=== PATIENT | male | born 1940 | race Caucasian/White ===

== ENCOUNTER → 2024-10-15 | Outpatient (CLI) | payer MEDICARE ==
[~2024-10-15] MED LIST: ASPI81CH33 PO; CIDE250T PO; DONE10TA90; MEMA10TA; OMEG10002 PO; THERTAB52 PO
== END ==
LOC: M PLARAD 09:56
PROVIDERS: ATTEND Internal Medicine Hematology & Oncology
DX: C22.9 Malignant neoplasm of liver, not specified as primary or secondary (principal)
CPT/HCPCS: 78815; A9552

== ENCOUNTER → 2024-10-29 | Outpatient (CLI) | payer MEDICARE ==
[2024-10-29 10:52] LABS: BASO # 0.1 10^3/uL (0.0-0.2); BASO % 0.7 % (0.0-1.0); EOS # 0.1 10^3/uL (0.0-0.5); EOS % 0.7 % (0.0-3.0); HEMATOCRIT 46.6 % (42.0-52.0); HEMOGLOBIN 15.7 g/dl (13.5-17.5); LYMPH # 2.1 10^3/uL (1.5-5.0); LYMPH % 20.4 % (24.0-44.0); MEAN CORPUSCULAR HEMOGLOBIN 32.6 pg (27.0-33.0); MEAN CORPUSCULAR HGB CONC 33.7 g/dl (32.0-36.5); MEAN CORPUSCULAR VOLUME 96.9 fl (80.0-96.0); MONO % 9.7 % (2.0-8.0); NEUTROPHILS % 68.2 % (36.0-66.0); PLATELET COUNT, AUTOMATED 277 10^3/uL (150-450); RED BLOOD COUNT 4.81 10^6/uL (4.30-6.10); WHITE BLOOD COUNT 10.2 10^3/uL (4.0-10.0)
[2024-10-29 11:13] LABS: PROTHROMBIN TIME 13.5 SECONDS (12.5-14.5)
[2024-10-29 11:31] LABS: ALBUMIN 3.5 G/DL (3.2-5.2); ALKALINE PHOSPHATASE 69 U/L (40-129); ALT/SGPT 26 U/L (7.0-40); AST/SGOT 30 U/L (<34); BILIRUBIN,TOTAL 0.6 MG/DL (0.3-1.2); BLOOD UREA NITROGEN 16 MG/DL (9-23); CALCIUM LEVEL 9.7 MG/DL (8.3-10.6); CARBON DIOXIDE LEVEL 26 MMOL/L (20-31); CHLORIDE LEVEL 104 MMOL/L (98-107); CREATININE FOR GFR 0.67 MG/DL (0.70-1.30); GLOMERULAR FILTRATION RATE > 60.0 (>35); GLUCOSE, FASTING 176 MG/DL (74-106); POTASSIUM SERUM 4.1 MMOL/L (3.5-5.1); SODIUM LEVEL 139 MMOL/L (136-145); TOTAL PROTEIN 6.8 G/DL (5.7-8.2)
== END ==
LOC: M ONCR 09:38
PROVIDERS: ATTEND General Practice
DX: D37.6 Neoplasm of uncertain behavior of liver, gallbladder and bile ducts (principal); K76.9 Liver disease, unspecified; Z79.82 Long term (current) use of aspirin; Z79.899 Other long term (current) drug therapy
CPT/HCPCS: 36415; 80053; 85025; 85610; G0463

== ENCOUNTER → 2024-10-31 | Outpatient (POV) | payer MEDICARE ==
[~2024-10-31] VITALS: Ht 165.1 cm; Wt 75.9 kg
[2024-10-31 15:45] VITALS: BP 148/102; O2SAT 96
== END ==
LOC: M IRPOV 15:25
PROVIDERS: ATTEND Radiology Diagnostic Radiology
DX: K76.89 Other specified diseases of liver (principal); G30.9 Alzheimer's disease, unspecified; F02.80 Dementia in other diseases classified elsewhere, unspecified severity, without behavioral disturbance, psychotic disturbance, mood disturbance, and anxiety; C61 Malignant neoplasm of prostate; G47.33 Obstructive sleep apnea (adult) (pediatric); Z79.82 Long term (current) use of aspirin; Z79.899 Other long term (current) drug therapy

== ENCOUNTER 2024-11-19 08:29 | Observation (INO) | payer MEDICARE ==
[~2024-11-19] VITALS: Ht 165.1 cm; Wt 80.6 kg
[~2024-11-19 08:29] MED LIST changes: +CINN500C2 PO; -DONE10TA90; +DONE10TA90 PO; -MEMA10TA; +MEMA10TA PO; +ODOR100T3 PO; +ceFAZolin SOD 1 GM in DEXTROSE 5% (D5W) ADV/MINI-BAG 50 ML IV ONE
[2024-11-19] MEDS: ISOVUE-300 61% 100ML VIAL IV ONE (08:55)
[2024-11-19] MEDS: EMLA CREAM 5GM TUBE (LIDOCAINE/PRILOCAINE) TOP ONE (08:55)
[2024-11-19] MEDS: ceFAZolin SOD 2 GM IV ONCE IV ONE (09:00)
[2024-11-19] MEDS: metroNIDAZOLE 500 MG in IV 1 EA IV ONE (09:00)
[2024-11-19] MEDS: NS (Normal Saline) 0.9% 1,000 ML IV SCH ×2 (09:00→15:23)
[2024-11-19 09:02] LABS: HEMATOCRIT 47.4 % (42.0-52.0); HEMOGLOBIN 15.7 g/dl (13.5-17.5); MEAN CORPUSCULAR HEMOGLOBIN 31.9 pg (27.0-33.0); MEAN CORPUSCULAR HGB CONC 33.1 g/dl (32.0-36.5); MEAN CORPUSCULAR VOLUME 96.3 fl (80.0-96.0); PLATELET COUNT, AUTOMATED 266 10^3/uL (150-450); RED BLOOD COUNT 4.92 10^6/uL (4.30-6.10); WHITE BLOOD COUNT 10.8 10^3/uL (4.0-10.0)
[2024-11-19 09:19] LABS: INR 1.01; PROTHROMBIN TIME 13.6 SECONDS (12.5-14.5)
[2024-11-19 09:27] LABS: ALBUMIN 3.6 G/DL (3.2-5.2); ALKALINE PHOSPHATASE 71 U/L (40-129); ALT/SGPT 27 U/L (7.0-40); AST/SGOT 38 U/L (<34); BILIRUBIN,TOTAL 0.7 MG/DL (0.3-1.2); BLOOD UREA NITROGEN 11 MG/DL (9-23); CALCIUM LEVEL 9.3 MG/DL (8.3-10.6); CARBON DIOXIDE LEVEL 28 MMOL/L (20-31); CHLORIDE LEVEL 104 MMOL/L (98-107); CREATININE FOR GFR 0.67 MG/DL (0.70-1.30); GLOMERULAR FILTRATION RATE > 60.0 (>35); GLUCOSE, FASTING 117 MG/DL (74-106); POTASSIUM SERUM 4.4 MMOL/L (3.5-5.1); SODIUM LEVEL 142 MMOL/L (136-145); TOTAL PROTEIN 6.8 G/DL (5.7-8.2)
[2024-11-19] MEDS: MIDAZOLAM INJ 2MG/2ML VIAL IV PRN (09:57)
[2024-11-19] MEDS: fentaNYL 100 MCG/2 ML INJECTION IV PRN (09:57)
[2024-11-19] MEDS: NITROGLYCERIN 2% OINT 1 GM *U/D* PKT TOP ONE (10:00)
[2024-11-19] MEDS: NITROGLYCERIN IN D5W 25MG/250ML (100MCG/ML) XX ONE (10:11)
[2024-11-19] MEDS: HEPARIN 1,000UNITS/ML 10ML VIAL (FOR RADIOLOGY & DIALYSIS ONLY) IV PRN (10:13)
[2024-11-19] MEDS ORDERED: DOXORUBICIN IART ONE (10:30)
[2024-11-19] MEDS ORDERED: IOPAMIDOL IART ONE (10:30)
[2024-11-19] MEDS ORDERED: SODIUM CHLORIDE IART ONE (10:30)
[2024-11-19] MEDS: ONDANSETRON 4MG 2ML VIAL IV ONE (11:29)
[2024-11-19] MEDS: diphenhydrAMINE 50MG/ML VIAL IV ONE (11:30)
[2024-11-19] MEDS: dexAMETHasone 20MG/5ML VIAL IV ONE (11:30)
[2024-11-19] MEDS: ETHIODIZED OIL 480 MG/ML IART ONE (11:32)
[2024-11-19] MEDS ORDERED: EMBOSPHERE MICROSPHERES As Ordered ONE (11:37)
[2024-11-19] MEDS: IOPAMIDOL IART ONE (11:41)
[2024-11-19] MEDS: DOXORUBICIN IART ONE (11:41)
[2024-11-19] MEDS: SODIUM CHLORIDE IART ONE (11:41)
[2024-11-19] MEDS ORDERED: MORPHINE 2 MG/ML 1ML VIAL IV PRN (12:00)
[2024-11-19] MEDS ORDERED: NS (Normal Saline) 0.9% 1,000 ML IV SCH (12:00)
[2024-11-19] MEDS ORDERED: oxyCODONE 5MG TAB PO PRN ×3 (12:00→14:40)
[2024-11-19] MEDS ORDERED: ONDANSETRON 4MG 2ML VIAL IV PRN ×2 (12:00→14:40)
[2024-11-19] MEDS: LIDOCAINE 1% MDV 20ML VIAL SC ONE (12:07)
[2024-11-19] MEDS: oxyCODONE 5MG TAB PO PRN (13:10)
[2024-11-19] MEDS ORDERED: MIRALAX *UNIT DOSE* 17GM PACKET PO PRN (14:40)
[2024-11-19] MEDS ORDERED: ACETAMINOPHEN 500 MG TAB PO PRN (15:00)
[2024-11-19] MEDS ORDERED: PILL CUTTER 1 EACH XX PRN (15:25)
[2024-11-19 15:34] VITALS: BP 140/84; TEMP 97.2; O2SAT 92
[2024-11-19 16:04] VITALS: BP 142/88; TEMP 96.6; O2SAT 91
[2024-11-19 16:34] VITALS: BP 140/86; TEMP 96.8; O2SAT 93
[2024-11-19] MEDS: ceFAZolin SODIUM 2 GM in DEXTROSE 5% (D5W) ADV/MINI-BAG 50 ML IV SCH (16:58)
[2024-11-19] MEDS ORDERED: HOME MED LIST COMPLETE! XX SCH (17:05)
[2024-11-19 18:34] VITALS: BP 140/88; TEMP 97; O2SAT 90
[2024-11-19 19:33] VITALS: BP 147/93; TEMP 97.7; O2SAT 91
[2024-11-19 20:51] VITALS: BP 148/96; TEMP 97.7; O2SAT 92
[2024-11-19] MEDS: metroNIDAZOLE 500 MG in IV 1 EA IV SCH (21:13)
[2024-11-19] MEDS: MEMANTINE 5MG TABLET (NAMENDA) PO SCH (21:13)
[2024-11-20 00:47] VITALS: BP 147/92; TEMP 97.9; O2SAT 92
[2024-11-20 03:50] VITALS: BP 140/90; TEMP 96.8; O2SAT 92
[2024-11-20 05:22] LABS: HEMATOCRIT 41.6 % (42.0-52.0); HEMOGLOBIN 14.2 g/dl (13.5-17.5); MEAN CORPUSCULAR HEMOGLOBIN 32.6 pg (27.0-33.0); MEAN CORPUSCULAR HGB CONC 34.1 g/dl (32.0-36.5); MEAN CORPUSCULAR VOLUME 95.4 fl (80.0-96.0); PLATELET COUNT, AUTOMATED 242 10^3/uL (150-450); RED BLOOD COUNT 4.36 10^6/uL (4.30-6.10); WHITE BLOOD COUNT 13.5 10^3/uL (4.0-10.0)
[2024-11-20 05:42] LABS: INR 1.12; PROTHROMBIN TIME 14.7 SECONDS (12.5-14.5)
[2024-11-20 05:53] LABS: ALBUMIN 3.1 G/DL (3.2-5.2); ALKALINE PHOSPHATASE 118 U/L (40-129); ALT/SGPT 318 U/L (7.0-40); AST/SGOT 633 U/L (<34); BILIRUBIN,TOTAL 0.5 MG/DL (0.3-1.2); BLOOD UREA NITROGEN 14 MG/DL (9-23); CALCIUM LEVEL 8.8 MG/DL (8.3-10.6); CARBON DIOXIDE LEVEL 26 MMOL/L (20-31); CHLORIDE LEVEL 105 MMOL/L (98-107); CREATININE FOR GFR 0.77 MG/DL (0.70-1.30); GLOMERULAR FILTRATION RATE > 60.0 (>35); GLUCOSE, FASTING 133 MG/DL (74-106); POTASSIUM SERUM 4.4 MMOL/L (3.5-5.1); SODIUM LEVEL 141 MMOL/L (136-145); TOTAL PROTEIN 5.9 G/DL (5.7-8.2)
[2024-11-20 08:00] VITALS: BP 139/90; TEMP 98.6; O2SAT 96
[2024-11-20] MEDS: DONEPEZIL 5 MG TAB PO SCH (09:08)
[2024-11-20] MEDS ORDERED: ONDA-282 PO (10:42)
[2024-11-20] MEDS ORDERED: OXYC-517 PO (10:42)
[2024-11-20] MEDS ORDERED: MIRA33506 PO (10:42)
== END 2024-11-20 15:55 | disposition home or self-care (01) ==
LOC: M IRPRO 08:29 → M MSPAV 08:30
PROVIDERS: ADMIT Student in an Organized Health Care Education/Training Program; ATTEND Student in an Organized Health Care Education/Training Program
DX: C22.8 Malignant neoplasm of liver, primary, unspecified as to type (principal); R74.01 Elevation of levels of liver transaminase levels; G30.9 Alzheimer's disease, unspecified; F02.80 Dementia in other diseases classified elsewhere, unspecified severity, without behavioral disturbance, psychotic disturbance, mood disturbance, and anxiety; Z85.46 Personal history of malignant neoplasm of prostate; Z90.79 Acquired absence of other genital organ(s); Z98.52 Vasectomy status; Z98.890 Other specified postprocedural states; G47.33 Obstructive sleep apnea (adult) (pediatric); K57.90 Diverticulosis of intestine, part unspecified, without perforation or abscess without bleeding; Z83.719 Family history of colon polyps, unspecified; Z79.899 Other long term (current) drug therapy; Z79.82 Long term (current) use of aspirin; Z66 Do not resuscitate
CPT/HCPCS: 36415; 37243; 47000; 76942; 80053; 82105; 85027; 85610; 88305; 93005; 97116; 97161; 97530; 99152; 99153; C1760; C1887; C1894; G0378; J0690; J1100; J1200; J1836; J2250; J2305; J2405; J3010; J9000; Q9967

== ENCOUNTER → 2024-12-18 | Outpatient (CLI) | payer MEDICARE ==
[~2024-12-18] MED LIST changes: +ISOVUE-370 76% 100ML VIAL As Ordered ONE; +MIRA33506 PO; +ONDA-282 PO; +OXYC-517 PO; -ceFAZolin SOD 1 GM in DEXTROSE 5% (D5W) ADV/MINI-BAG 50 ML IV ONE
== END ==
LOC: M RAD 09:34
PROVIDERS: ATTEND Radiology Diagnostic Radiology
DX: R16.0 Hepatomegaly, not elsewhere classified (principal)
CPT/HCPCS: 74160; Q9967

== ENCOUNTER → 2025-03-18 | Outpatient (CLI) | payer MEDICARE ==
[~2025-03-18] MED LIST changes: -ISOVUE-370 76% 100ML VIAL As Ordered ONE; +PROB250C PO
== END ==
LOC: M PLARAD 11:28
PROVIDERS: ATTEND General Practice
DX: C22.1 Intrahepatic bile duct carcinoma (principal)
CPT/HCPCS: 78815; A9552

== ENCOUNTER → 2025-03-27 | Outpatient (POV) | payer MEDICARE ==
[~2025-03-27] VITALS: Ht 167.6 cm; Wt 80.9 kg
[~2025-03-27] MED LIST changes: +ONDA-83 PO
[2025-03-27 11:25] VITALS: BP 134/82; O2SAT 94
== END ==
LOC: M IRPOV 11:02
PROVIDERS: ATTEND Registered Nurse School
DX: Z48.812 Encounter for surgical aftercare following surgery on the circulatory system (principal); C22.1 Intrahepatic bile duct carcinoma

== ENCOUNTER → 2025-03-27 | Outpatient (CLI) | payer MEDICARE | LOC: M ONCR 13:28 | PROVIDERS: ATTEND General Practice | DX: C22.1 Intrahepatic bile duct carcinoma (principal); Z79.82 Long term (current) use of aspirin; Z79.899 Other long term (current) drug therapy | CPT/HCPCS: G0463 ×2 ==

== ENCOUNTER 2025-04-02 09:28 | Outpatient (RCR) | payer MEDICARE | END 2025-04-14 | LOC: M ONCR 09:28 | PROVIDERS: ATTEND General Practice | DX: Z51.0 Encounter for antineoplastic radiation therapy (principal); C22.1 Intrahepatic bile duct carcinoma ==

== ENCOUNTER 2025-04-24 11:34 | Outpatient (RCR) | payer MEDICARE | END 2025-05-14 | LOC: M ONCR 11:34 | PROVIDERS: ATTEND General Practice | DX: Z51.0 Encounter for antineoplastic radiation therapy (principal); C22.1 Intrahepatic bile duct carcinoma ==

== ENCOUNTER → 2025-07-08 | Outpatient (CLI) | payer MEDICARE ==
[2025-07-08 10:40] LABS: ALT/SGPT 36 U/L (7.0-40); AST/SGOT 34 U/L (<34); CALCIUM LEVEL 9.4 MG/DL (8.3-10.6); CARBON DIOXIDE LEVEL 28 MMOL/L (20-31); CHLORIDE LEVEL 105 MMOL/L (98-107); CREATININE FOR GFR 0.78 MG/DL (0.70-1.30); GLOMERULAR FILTRATION RATE 87.4 (>35); POTASSIUM SERUM 4.1 MMOL/L (3.5-5.1); SODIUM LEVEL 144 MMOL/L (136-145)
== END ==
LOC: M LAB 09:46
PROVIDERS: ATTEND General Practice
DX: C22.1 Intrahepatic bile duct carcinoma (principal); R78.9 Finding of unspecified substance, not normally found in blood

== ENCOUNTER → 2025-07-18 | Outpatient (CLI) | payer MEDICARE ==
[~2025-07-18] MED LIST changes: +ISOVUE-370 76% 100 ML VIAL As Ordered ONE
== END ==
LOC: M RAD 10:11
PROVIDERS: ATTEND General Practice
DX: C22.1 Intrahepatic bile duct carcinoma (principal); J90 Pleural effusion, not elsewhere classified; K80.20 Calculus of gallbladder without cholecystitis without obstruction
CPT/HCPCS: 74178; Q9967

== ENCOUNTER → 2025-07-26 | Outpatient (CLI) | payer MEDICARE ==
[~2025-07-26] MED LIST changes: -ISOVUE-370 76% 100 ML VIAL As Ordered ONE
== END ==
LOC: M ONCR 10:52
PROVIDERS: ATTEND General Practice
DX: C22.1 Intrahepatic bile duct carcinoma (principal); R32 Unspecified urinary incontinence; Z92.3 Personal history of irradiation; Z79.82 Long term (current) use of aspirin; Z79.899 Other long term (current) drug therapy